=== PATIENT | male | born 1975 | race Caucasian/White ===

== ENCOUNTER 2018-04-19 15:30 | Inpatient (IN) | payer MEDICAID ==
[~2018-04-19] VITALS: Ht 177.8 cm; Wt 121.2 kg
[2018-04-19 15:38] VITALS: Ht 177.8 cm; Wt 121.2 kg
[2018-04-19 18:00] LABS: CALCIUM 9.5 mg/dL (8.5-10.1); CARBON DIOXIDE 33.5 mmol/L (21-32); CHLORIDE SERUM 103 mmol/L (98-107); CREATININE SERUM 0.9 mg/dL (0.7-1.3); GFR1 > 60 mL/min; GLUCOSE SERUM 153 mg/dL (74-106); POTASSIUM SERUM 4.3 mmol/L (3.5-5.1); SODIUM SERUM 144 mmol/L (136-145)
[2018-04-19 18:04] LABS: ALKALINE PHOSPHATASE 144 U/L (46-116); ALT/SGPT 105 U/L (16-63); AMYLASE 36 U/L (25-115); AST/SGOT 50 U/L (15-37); BILIRUBIN TOTAL 0.54 mg/dL (0.20-1.00); LIPASE 78 IU/L (73-393)
[2018-04-19 18:05] LABS: TOTAL PROTEIN, SERUM 8.5 g/dL (6.4-8.2)
[2018-04-19 18:20] LABS: BASOPHIL % 0.4 % (0-2); PLATELET COUNT 315 x10^3mcL (130-400); RED CELL DISTRIBUTION WIDTH 13.1 % (11.5-14.5)
[2018-04-19 18:36] LABS: microscopic required? YES; urine erythrocyte NEGATIVE (NEGATIVE)
[2018-04-19 19:53] LABS: MAGNESIUM 2.2 mg/dL (1.8-2.4); PHOSPHOROUS 3.8 mg/dL (2.5-4.9)
[2018-04-19 19:54] LABS: CHOLESTEROL/HDL RATIO 6.1
[2018-04-19 20:00] LABS: T3 TOTAL 1.47 ng/mL
[2018-04-19 20:01] LABS: FREE T4 1.02 ng/dL (0.76-1.46); FREE THYROXINE INDEX 3.5 ug/dL (1.4-4.5); T4(THYROXINE) 10.1 ug/dL (4.7-13.3)
[2018-04-19 20:29] VITALS: BP 153/89
[2018-04-20 04:38] VITALS: BP 111/64
[2018-04-20 07:10] LABS: CALCIUM 8.6 mg/dL (8.5-10.1); CARBON DIOXIDE 29.3 mmol/L (21-32); CHLORIDE SERUM 101 mmol/L (98-107); CREATININE SERUM 0.8 mg/dL (0.7-1.3); GFR1 > 60 mL/min; GLUCOSE SERUM 107 mg/dL (74-106); MAGNESIUM 2.2 mg/dL (1.8-2.4); PHOSPHOROUS 4.1 mg/dL (2.5-4.9); POTASSIUM SERUM 3.4 mmol/L (3.5-5.1); SODIUM SERUM 136 mmol/L (136-145)
[2018-04-20 07:12] LABS: BASOPHIL % 0.2 % (0-2); PLATELET COUNT 302 x10^3mcL (130-400); RED CELL DISTRIBUTION WIDTH 13.4 % (11.5-14.5)
[2018-04-20 09:37] VITALS: BP 121/68
[2018-04-20 12:36] VITALS: BP 153/83
[2018-04-20 15:42] LABS: AMPHETAMINE QUAL UR NONE DETECTED (See below)
[2018-04-20 16:59] VITALS: BP 119/62
[2018-04-20 20:38] VITALS: BP 131/78
[2018-04-21 06:34] VITALS: BP 105/69
[2018-04-21 07:14] LABS: BASOPHIL % 0.2 % (0-2); PLATELET COUNT 266 x10^3mcL (130-400); RED CELL DISTRIBUTION WIDTH 13.5 % (11.5-14.5)
[2018-04-21 08:33] LABS: CALCIUM 8.6 mg/dL (8.5-10.1); CARBON DIOXIDE 25.4 mmol/L (21-32); CHLORIDE SERUM 103 mmol/L (98-107); CREATININE SERUM 0.7 mg/dL (0.7-1.3); GFR1 > 60 mL/min; GLUCOSE SERUM 116 mg/dL (74-106); MAGNESIUM 2.2 mg/dL (1.8-2.4); PHOSPHOROUS 3.8 mg/dL (2.5-4.9); SODIUM SERUM 135 mmol/L (136-145)
[2018-04-21 09:07] VITALS: BP 102/64
[2018-04-21 10:33] VITALS: BP 102/64
[2018-04-21] MEDS ORDERED: ACETAMINOPHEN-H1 TA1 PO (11:04)
== END 2018-04-21 13:28 | disposition home or self-care (01) | DRG 227 ==
LOC: ED 15:30 → MU 19:16
PROVIDERS: Emergency Medicine; Surgery; ADMIT Internal Medicine
PROC: 0WUF0JZ Supplement Abdominal Wall with Synthetic Substitute, Open Approach (ICD-10-PCS; principal; 2018-04-20 10:15)
DX: K43.0 Incisional hernia with obstruction, without gangrene (principal); Z68.41 Body mass index [BMI] 40.0-44.9, adult; E11.9 Type 2 diabetes mellitus without complications; E66.9 Obesity, unspecified; R74.0 Nonspecific elevation of levels of transaminase and lactic acid dehydrogenase [LDH]
CPT/HCPCS: 82962; 83880; 84439; C1781; J0330; J0690; J1170; J1885; J2175; J2250; J2405; J2704; J3010; J3490; J7030; Q0092; Q9967

== ENCOUNTER 2018-04-26 10:11 | Emergency (ER) | payer MEDICAID ==
[~2018-04-26] VITALS: Ht 165.1 cm; Wt 123.4 kg
[~2018-04-26 10:11] MED LIST: ACETAMINOPHEN-H1 TA1 PO
[2018-04-26 10:29] VITALS: BP 134/72; Ht 165.1 cm; Wt 123.4 kg
== END 2018-04-26 11:06 | disposition home or self-care (01) ==
LOC: ED 10:11
DX: Z48.01 Encounter for change or removal of surgical wound dressing (principal); E11.9 Type 2 diabetes mellitus without complications; Z90.49 Acquired absence of other specified parts of digestive tract; Z90.89 Acquired absence of other organs; Z98.890 Other specified postprocedural states